=== PATIENT | male | born 1955 | race Caucasian/White ===

== ENCOUNTER 2016-05-19 11:42 | Observation (INO) | payer BC ==
[~2016-05-19] VITALS: Ht 168.9 cm; Wt 91.0 kg
[2016-05-19] MEDS ORDERED: ASPIRIN 81 MG CHEW TAB ONE (11:58)
[2016-05-19] MEDS ORDERED: DOCUSATE SOD 100 MG CAP PO PRN (16:10)
[2016-05-19] MEDS ORDERED: SALINE FLUSH 10 ML FLUSH PRN (16:10)
[2016-05-19] MEDS ORDERED: TEMAZEPAM 15 MG CAP PO PRN (16:10)
[2016-05-19] MEDS ORDERED: NITROGLYCERIN SL 0.4 MG TAB SL PRN (16:10)
[2016-05-19] MEDS ORDERED: MORPHINE 2 MG/ML SYR IV PRN (16:10)
[2016-05-19] MEDS ORDERED: SODIUM CHLORIDE 0.9% 1,000 ML IV SCH (16:10)
[2016-05-19] MEDS ORDERED: LORAZEPAM 0.5 MG TAB PO PRN (16:10)
[2016-05-19] MEDS ORDERED: SODIUM CHLORIDE 0.9% FLUSH BAG 500 ML IV PRN (16:10)
[2016-05-19] MEDS ORDERED: NITROGLYCERIN 50 MG/250 ML IV PRN (16:10)
[2016-05-19] MEDS ORDERED: TRAMADOL 50 MG TAB PO PRN (16:10)
[2016-05-19] MEDS ORDERED: ACETAMINOPHEN 325 MG TAB PO PRN (16:10)
[2016-05-19] MEDS ORDERED: ONDANSETRON 4 MG VIAL IV PRN (16:10)
[2016-05-19 16:23] VITALS: BP_SYST 170; RESP 20; TEMP 97.6
[2016-05-19 17:08] VITALS: Ht 168.9 cm; Wt 91.0 kg
[2016-05-19 19:12] VITALS: BP_SYST 162; RESP 18; TEMP 97.6
[2016-05-19] MEDS: SALINE FLUSH 10 ML FLUSH SCH (21:07)
[2016-05-19] MEDS ORDERED: *PINK BRACELET XX ONE (21:25)
[2016-05-19] MEDS: LISINOPRIL/HCTZ 20/12.5 TAB PO SCH (22:45)
[2016-05-19] MEDS: MELOXICAM 7.5 MG TAB PO SCH (22:45)
[2016-05-19] MEDS: DULoxetine 30 MG CAP PO SCH (22:45)
[2016-05-19] MEDS: Losartan 50 MG TAB PO SCH (22:45)
[2016-05-19] MEDS: Atorvastatin 20 MG TAB PO SCH (22:46)
[2016-05-19] MEDS: METOPROLOL XL 50 MG TAB PO SCH (22:46)
[2016-05-19] MEDS: DILTIAZEM CD 180 MG CAP PO SCH (22:46)
[2016-05-19] MEDS: GABAPENTIN 300 MG CAP PO SCH (22:46)
[2016-05-19] MEDS: KCL CR 20 MEQ TAB PO SCH (22:46)
[2016-05-20] VITALS (7 sets, daily range): BP systolic 113–169; RESP 18; TEMP 97.6–98
[2016-05-20] MEDS: *HOME MEDS KEPT IN PHARMACY XX SCH ×2 (07:56→21:33)
[2016-05-20] MEDS ORDERED: ASPIRIN EC 81 MG TAB PO SCH (08:00)
[2016-05-20] MEDS: SALINE FLUSH 10 ML FLUSH SCH (08:22)
[2016-05-20] MEDS: KCL CR 20 MEQ TAB PO SCH ×2 (08:22→21:00)
[2016-05-20] MEDS: GABAPENTIN 300 MG CAP PO SCH ×4 (09:01→21:00)
[2016-05-20] MEDS: DILTIAZEM CD 180 MG CAP PO SCH (21:00)
[2016-05-20] MEDS: MELOXICAM 7.5 MG TAB PO SCH (21:00)
[2016-05-20] MEDS: DULoxetine 30 MG CAP PO SCH (21:00)
[2016-05-20] MEDS: LISINOPRIL/HCTZ 20/12.5 TAB PO SCH (21:00)
[2016-05-20] MEDS: Atorvastatin 20 MG TAB PO SCH (21:00)
[2016-05-20] MEDS: METOPROLOL XL 50 MG TAB PO SCH (21:00)
[2016-05-20] MEDS: Losartan 50 MG TAB PO SCH (21:00)
== END 2016-05-20 20:04 | disposition home or self-care (01) ==
LOC: ENRESERVDT → CANRESERV → ENRESERVTM → ER 11:42 → EMR 14:22 → ENPENDDIS 14:22 → PCU2 16:00 → PCU 20:28
PROVIDERS: ADMIT Internal Medicine; ATTEND Internal Medicine
DX: R07.9 Chest pain, unspecified (principal); I10 Essential (primary) hypertension; E78.5 Hyperlipidemia, unspecified; F17.210 Nicotine dependence, cigarettes, uncomplicated; Z79.899 Other long term (current) drug therapy; E66.9 Obesity, unspecified; Z68.31 Body mass index [BMI] 31.0-31.9, adult
CPT/HCPCS: 36415; 71010; 80053; 80061; 82550; 82553; 83735; 84484; 85025; 85379; 85610; 85730; 93005